=== PATIENT | female | born 1965 | race Caucasian/White ===

== ENCOUNTER 2016-12-08 19:20 | Inpatient (IN) | payer OTHER, BC ==
[~2016-12-08] VITALS: Ht 172.7 cm; Wt 97.4 kg
[~2016-12-08 19:20] MED LIST: ALPR1TAB2 PO; AMLO5TAB2 PO; BUPR150T6 PO; CEPH-368 PO; CHOL2000 PO; DIAZ5TAB PO; GABA-826 PO; HYDR25TA6 PO; LAMO150T PO; METH750T87 PO; OMEP-110 PO; OXYC10TA6 PO; OXYC5TAB2 PO; PARO30TA45 PO; TRAZ100T15 PO; VITA400C42 PO
[2016-12-08] MEDS ORDERED: ONDANSETRON 2MG/ML, 2ML IVPush ONE (19:30)
[2016-12-08] MEDS ORDERED: SODIUM CHLORIDE 0.9% 1,000ML IVBOLUS ONE (19:30)
[2016-12-08] MEDS ORDERED: ONDANSETRON 2MG/ML, 2ML ONE (19:32)
[2016-12-08 19:54] LABS: ASPARTATE AMINO TRANSFERASE 25 U/L (15-37); BLOOD UREA NITROGEN 16 mg/dL (7-18)
[2016-12-08 20:20] LABS: PATH.CAST-FLAG NOT PRESENT; SPERM-FLAG NOT PRESENT; SRC-FLAG NOT PRESENT; XTAL-FLAG NOT PRESENT; YLC-FLAG NOT PRESENT
[2016-12-08] MEDS ORDERED: MORPHINE SULFATE 4 MG/ML, 1ML ONE ×3 (20:22→22:28)
[2016-12-08] MEDS ORDERED: TRINTELLIX PO (20:30)
[2016-12-08] MEDS ORDERED: MORPHINE SULFATE 4 MG/ML, 1ML IVPush ONE ×2 (20:30→22:00)
[2016-12-08] MEDS ORDERED: ALPR1TAB2 PO (20:31)
[2016-12-08] MEDS ORDERED: MECL12.52 PO (20:31)
[2016-12-08] MEDS ORDERED: TRAZ100T15 PO (20:31)
[2016-12-08] MEDS ORDERED: OMNIPAQUE 350 MG/ML, 100ML BOTTLE ONE (21:32)
[2016-12-08] MEDS ORDERED: FAMOTIDINE 20 MG/2 ML ONE (21:40)
[2016-12-08] MEDS ORDERED: METOCLOPRAMIDE 5 MG/ML, 2ML ONE (21:40)
[2016-12-08] MEDS ORDERED: METOCLOPRAMIDE 5 MG/ML, 2ML IVPush ONE (22:00)
[2016-12-08] MEDS ORDERED: FAMOTIDINE 20 MG/2 ML IVPush ONE (22:00)
[2016-12-08] MEDS ORDERED: morphine SULFATE 10 MG/ML, 1ML IVPush ONE (22:00)
[2016-12-08] MEDS ORDERED: PROMETHAZINE 25 MG/ML, 1ML IM ONE (23:00)
[2016-12-08] MEDS ORDERED: HYDROmorphone 2 MG/ML, 1ML IVPush PRN ×2 (23:00)
[2016-12-08] MEDS ORDERED: BISACODYL 10 MG SUPP PR PRN (23:30)
[2016-12-08] MEDS ORDERED: MECLIZINE 12.5 MG TABLET PO PRN (23:30)
[2016-12-08] MEDS ORDERED: ENALAPRILAT 1.25 MG/ML, 2ML IVPush PRN (23:30)
[2016-12-08] MEDS ORDERED: OXYcodone IR 5MG TABLET PO PRN (23:30)
[2016-12-08] MEDS ORDERED: TRAZODONE 100MG TABLET PO SCH (23:30)
[2016-12-08] MEDS ORDERED: POLYETHYLENE GLYCOL 17 GM PACKET PO PRN (23:30)
[2016-12-08] MEDS ORDERED: hydrALAzine 20 MG/ML, 1ML IVPush PRN (23:30)
[2016-12-09] MEDS: SODIUM CHLORIDE 0.9% 1,000 ML IV SCH ×3 (01:08→14:54)
[2016-12-09 02:40] VITALS: BP 129/76
[2016-12-09] MEDS: HEPARIN 5,000 UNITS/ML, 1ML SQ SCH ×3 (05:54→21:35)
[2016-12-09 06:22] LABS: ASPARTATE AMINO TRANSFERASE 225 U/L (15-37); BLOOD UREA NITROGEN 13 mg/dL (7-18)
[2016-12-09] MEDS ORDERED: SUMATRIPTAN 25 MG TABLET PO ONE (08:00)
[2016-12-09 08:15] VITALS: BP 109/67
[2016-12-09] MEDS: LAMOTRIGINE 100 MG TABLET PO SCH (09:00)
[2016-12-09] MEDS: AMLODIPINE 5 MG TABLET PO SCH (09:00)
[2016-12-09] MEDS ORDERED: OMEPRAZOLE 20 MG CAPSULE.DR PO SCH (09:00)
[2016-12-09] MEDS: CHOLECALCIFEROL 1,000 UNIT TABLET PO SCH (09:00)
[2016-12-09] MEDS: SENNA/DOCUSATE TABLET PO SCH (09:09)
[2016-12-09] MEDS: ONDANSETRON 2MG/ML, 2ML IVPush PRN (09:59)
[2016-12-09] MEDS: morphine SULFATE 10 MG/ML, 1ML IVPush PRN (13:58)
[2016-12-09 14:30] VITALS: BP 125/78
[2016-12-09] MEDS: LORazepam 2 MG/ML, 1ML IVPush PRN (17:00)
[2016-12-09] MEDS: D5%-0.9% NACL 1,000 ML IV SCH (17:00)
[2016-12-09 19:43] VITALS: BP 121/74
[2016-12-09] MEDS ORDERED: TRAZODONE 100MG TABLET PO SCH (21:00)
[2016-12-09] MEDS ORDERED: TRAZODONE 100MG TABLET PO ONE (23:00)
[2016-12-10] MEDS: D5%-0.9% NACL 1,000 ML IV SCH ×2 (02:00→15:00)
[2016-12-10 03:24] VITALS: BP 120/75
[2016-12-10] MEDS: HEPARIN 5,000 UNITS/ML, 1ML SQ SCH ×2 (05:27→13:00)
[2016-12-10 05:41] LABS: BLOOD UREA NITROGEN 11 mg/dL (7-18)
[2016-12-10 05:45] LABS: ASPARTATE AMINO TRANSFERASE 61 U/L (15-37)
[2016-12-10 08:05] VITALS: BP 154/95
[2016-12-10] MEDS: morphine SULFATE 10 MG/ML, 1ML IVPush PRN ×3 (08:06→15:58)
[2016-12-10] MEDS: AMLODIPINE 5 MG TABLET PO SCH (08:08)
[2016-12-10] MEDS: CHOLECALCIFEROL 1,000 UNIT TABLET PO SCH (08:08)
[2016-12-10] MEDS: LAMOTRIGINE 100 MG TABLET PO SCH (08:08)
[2016-12-10] MEDS: SENNA/DOCUSATE TABLET PO SCH (08:08)
[2016-12-10] MEDS: ONDANSETRON 2MG/ML, 2ML IVPush PRN (08:17)
[2016-12-10 13:10] VITALS: BP 110/70
[2016-12-10] MEDS ORDERED: PHENYLEPHRINE 10 MG/ML ONE (14:30)
[2016-12-10] MEDS ORDERED: PROMETHAZINE 25 MG/ML, 1ML IV PRN (14:30)
[2016-12-10] MEDS ORDERED: METOCLOPRAMIDE 5 MG/ML, 2ML IV PRN (14:30)
[2016-12-10] MEDS ORDERED: ROCURONIUM 10 MG/ML ONE (14:30)
[2016-12-10] MEDS ORDERED: ONDANSETRON 2MG/ML, 2ML IVPush PRN (14:30)
[2016-12-10] MEDS ORDERED: EPHEDRINE 50 MG/ML, 1ML ONE (14:30)
[2016-12-10] MEDS ORDERED: SUCCINYLCHOLINE 20 MG/ML, 10ML ONE (14:30)
[2016-12-10] MEDS ORDERED: PROPOFOL 10 MG/ML, 20ML ONE (14:30)
[2016-12-10] MEDS ORDERED: INDOMETHACIN 50 MG SUPP.RECT ONE (15:50)
[2016-12-10] MEDS ORDERED: ONDANSETRON 2MG/ML, 2ML ONE (15:55)
[2016-12-10] MEDS ORDERED: morphine SULFATE 10 MG/ML, 1ML ONE (15:55)
[2016-12-10] MEDS ORDERED: INDOMETHACIN 50 MG SUPP.RECT PR ONE (16:00)
[2016-12-10] MEDS ORDERED: [UNRECOGNIZED DRUG - REMARK] MC PRN (17:30)
[2016-12-10 19:50] VITALS: BP 158/84
[2016-12-10] MEDS: LACTATED RINGERS 1,000 ML IV SCH ×2 (20:00→23:20)
[2016-12-10] MEDS: TRAZODONE 100MG TABLET PO SCH (21:16)
[2016-12-11 01:05] VITALS: BP 103/66
[2016-12-11] MEDS: morphine SULFATE 10 MG/ML, 1ML IVPush PRN ×3 (03:13→13:50)
[2016-12-11 04:40] VITALS: BP 115/72
[2016-12-11 06:06] LABS: BLOOD UREA NITROGEN 7 mg/dL (7-18)
[2016-12-11 06:10] LABS: ASPARTATE AMINO TRANSFERASE 175 U/L (15-37)
[2016-12-11 07:30] VITALS: BP 107/69
[2016-12-11] MEDS: AMLODIPINE 5 MG TABLET PO SCH (08:17)
[2016-12-11] MEDS: ONDANSETRON 2MG/ML, 2ML IVPush PRN ×2 (08:27→13:51)
[2016-12-11] MEDS: LAMOTRIGINE 100 MG TABLET PO SCH (08:29)
[2016-12-11] MEDS: CHOLECALCIFEROL 1,000 UNIT TABLET PO SCH (08:31)
[2016-12-11] MEDS: SENNA/DOCUSATE TABLET PO SCH (08:31)
[2016-12-11] MEDS ORDERED: LAMOTRIGINE 100 MG TABLET PO SCH (09:00)
[2016-12-11] MEDS ORDERED: LAMOTRIGINE 25 MG TABLET PO ONE ×2 (09:00→09:30)
[2016-12-11] MEDS: TRINTELLIX 10 MG PO SCH (10:07)
[2016-12-11] MEDS: OMEPRAZOLE 20 MG CAPSULE.DR PO SCH (11:19)
[2016-12-11 14:09] VITALS: BP 129/82
[2016-12-11 19:14] VITALS: BP 125/80
[2016-12-11] MEDS: TRAZODONE 100MG TABLET PO SCH (21:23)
[2016-12-12 00:28] VITALS: BP 114/72
[2016-12-12 05:38] LABS: BLOOD UREA NITROGEN 10 mg/dL (7-18)
[2016-12-12 05:42] LABS: ASPARTATE AMINO TRANSFERASE 67 U/L (15-37)
[2016-12-12 09:02] VITALS: BP 108/69
[2016-12-12] MEDS: OMEPRAZOLE 20 MG CAPSULE.DR PO SCH (09:21)
[2016-12-12] MEDS: LAMOTRIGINE 100 MG TABLET PO SCH (09:21)
[2016-12-12] MEDS: SENNA/DOCUSATE TABLET PO SCH (09:21)
[2016-12-12] MEDS: AMLODIPINE 5 MG TABLET PO SCH (09:21)
[2016-12-12] MEDS: CHOLECALCIFEROL 1,000 UNIT TABLET PO SCH (09:22)
[2016-12-12] MEDS: TRINTELLIX 10 MG PO SCH (09:24)
[2016-12-12] MEDS: LORazepam 2 MG/ML, 1ML IVPush PRN (12:44)
[2016-12-12] MEDS: ONDANSETRON 2MG/ML, 2ML IVPush PRN ×2 (12:44→20:24)
[2016-12-12 13:34] VITALS: BP 111/74
[2016-12-12 18:42] VITALS: BP 121/79
[2016-12-12] MEDS: TRAZODONE 100MG TABLET PO SCH (20:24)
[2016-12-13 03:32] VITALS: BP 135/86
[2016-12-13] MEDS ORDERED: ALUMINUM/MAG/SIMETHICONE 30 ML UDC PO PRN (04:00)
[2016-12-13 06:08] LABS: ASPARTATE AMINO TRANSFERASE 41 U/L (15-37); BLOOD UREA NITROGEN 11 mg/dL (7-18)
[2016-12-13 08:07] VITALS: BP 123/74
[2016-12-13] MEDS: TRINTELLIX 10 MG PO SCH (08:38)
[2016-12-13] MEDS: LAMOTRIGINE 100 MG TABLET PO SCH (08:38)
[2016-12-13] MEDS: OMEPRAZOLE 20 MG CAPSULE.DR PO SCH (08:38)
[2016-12-13] MEDS: SENNA/DOCUSATE TABLET PO SCH (08:38)
[2016-12-13] MEDS: CHOLECALCIFEROL 1,000 UNIT TABLET PO SCH (08:38)
[2016-12-13] MEDS: AMLODIPINE 5 MG TABLET PO SCH (08:38)
[2016-12-13] MEDS: ONDANSETRON 2MG/ML, 2ML IVPush PRN (11:35)
[2016-12-13 14:07] VITALS: BP 124/77
[2016-12-13] MEDS ORDERED: OMEP-110 PO (14:31)
[2016-12-13] MEDS ORDERED: LAMO100T PO (14:31)
[2016-12-13] MEDS ORDERED: ONDA4TAB7 PO (15:35)
== END 2016-12-13 16:00 | disposition home or self-care (01) | DRG 391 ==
LOC: ED 22:22 → EDIP 22:53 → 4NOR 23:49 → DCLOUNGE 12-13 15:46
PROVIDERS: ADMIT Internal Medicine; ATTEND Internal Medicine
PROC: 0DB68ZX Excision of Stomach, Via Natural or Artificial Opening Endoscopic, Diagnostic (ICD-10-PCS; 2016-12-10)
PROC: 0DB58ZX Excision of Esophagus, Via Natural or Artificial Opening Endoscopic, Diagnostic (ICD-10-PCS; 2016-12-10)
PROC: 0F798DZ Dilation of Common Bile Duct with Intraluminal Device, Via Natural or Artificial Opening Endoscopic (ICD-10-PCS; 2016-12-10)
PROC: 0DB98ZX Excision of Duodenum, Via Natural or Artificial Opening Endoscopic, Diagnostic (ICD-10-PCS; principal; 2016-12-10 14:30)
DX: K57.30 Diverticulosis of large intestine without perforation or abscess without bleeding (principal); K83.1 Obstruction of bile duct; K21.0 Gastro-esophageal reflux disease with esophagitis; I10 Essential (primary) hypertension; F32.9 Major depressive disorder, single episode, unspecified; F43.10 Post-traumatic stress disorder, unspecified; F41.9 Anxiety disorder, unspecified; G47.00 Insomnia, unspecified; Z87.11 Personal history of peptic ulcer disease; Z90.49 Acquired absence of other specified parts of digestive tract; Z88.0 Allergy status to penicillin; Z88.8 Allergy status to other drugs, medicaments and biological substances; F51.04 Psychophysiologic insomnia
CPT/HCPCS: 36415; 74177; 74181; 74328; 80053; 80061; 81001; 82306; 82784; 82977; 83036; 83516; 83690; 83735; 84439; 84443; 85025; 85610; 86704; 86706; 86708; 86803; 87086; 87340; 88305; 96361; 96374; 96375; 96376; J1644; J2405; J2704; J7042; Q9967; C1769; C1894; C2625; J0330; J2060; J2270; J2370; J2765; J7030; S0028

== ENCOUNTER → 2016-12-21 | Outpatient (CLI) | payer OTHER, BC ==
[~2016-12-21] MED LIST changes: +LAMO100T PO; +MECL12.52 PO; +ONDA4TAB7 PO; +TRINTELLIX PO
== END | disposition home or self-care (01) ==
LOC: RAD 16:40
PROVIDERS: ATTEND Internal Medicine Gastroenterology
DX: K83.8 Other specified diseases of biliary tract (principal); Z90.49 Acquired absence of other specified parts of digestive tract
CPT/HCPCS: 74000

== ENCOUNTER → 2017-03-11 | Outpatient (CLI) | payer OTHER, BC | END | disposition home or self-care (01) | LOC: CFH 15:47 | PROVIDERS: ATTEND Physician Assistant Surgical | DX: R51 Headache (principal); R53.1 Weakness; R41.3 Other amnesia | CPT/HCPCS: 70551 ==

== ENCOUNTER → 2017-03-16 | Outpatient (CLI) | payer OTHER, BC | END | disposition home or self-care (01) | LOC: CFH 12:01 | PROVIDERS: ATTEND Genetic Counselor, MS | DX: Z12.31 Encounter for screening mammogram for malignant neoplasm of breast (principal) | CPT/HCPCS: 77063; G0202 ==

== ENCOUNTER → 2017-07-29 | Outpatient (CLI) | payer OTHER, BC ==
[~2017-07-29] MED LIST changes: -LAMO150T PO; +LAMO150T2 PO; +OMNIPAQUE 350 MG/ML, 100ML BOTTLE ONE
== END | disposition home or self-care (01) ==
LOC: CFH 10:50
PROVIDERS: ATTEND Internal Medicine Gastroenterology
DX: R10.32 Left lower quadrant pain (principal); K57.92 Diverticulitis of intestine, part unspecified, without perforation or abscess without bleeding; R11.2 Nausea with vomiting, unspecified; K21.9 Gastro-esophageal reflux disease without esophagitis
CPT/HCPCS: 74177; 82565; Q9967

== ENCOUNTER → 2017-08-18 | Outpatient (CLI) | payer OTHER, BC ==
[~2017-08-18] MED LIST changes: -OMNIPAQUE 350 MG/ML, 100ML BOTTLE ONE
== END ==
LOC: PETCFH 08:08
PROVIDERS: ATTEND Internal Medicine Gastroenterology
DX: Z02.9 Encounter for administrative examinations, unspecified (principal)

== ENCOUNTER 2018-08-19 14:13 | Emergency (ER) | payer OTHER ==
[~2018-08-19] VITALS: Ht 172.7 cm; Wt 91.1 kg
[~2018-08-19 14:13] MED LIST changes: +AMLO-150 PO; -AMLO5TAB2 PO; +TRAZ-137 PO; -TRAZ100T15 PO
[2018-08-19] MEDS ORDERED: SODIUM CHLORIDE FLUSH 10ML SYR IVF ONE (15:00)
[2018-08-19] MEDS ORDERED: MORPHINE SULFATE 4 MG/ML, 1ML IVPush PRN (15:00)
[2018-08-19] MEDS ORDERED: ONDANSETRON 2MG/ML, 2ML IVPush ONE (15:00)
[2018-08-19 15:11] LABS: BASOPHILS # (AUTO) 0.04 x10^3/uL (0-0.1); BASOPHILS % (AUTO) 1 % (0-1); EOSINOPHILS # (AUTO) 0.15 x10^3/uL (0-0.4); EOSINOPHILS % (AUTO) 3 % (1-7); LYMPHOCYTES % (AUTO) 28 % (22-44); MD NO; MEAN CORPUSCULAR HEMOGLOBIN 30.2 pg (27.0-34.8); MEAN CORPUSCULAR HGB CONC 33.4 g/dL (32.4-35.8); MEAN CORPUSCULAR VOLUME 90.5 fL (80-100); MEAN PLATELET VOLUME 8.3 fL (7.4-10.4); MONOCYTES # (AUTO) 0.45 x10^3/uL (0.2-0.8); MONOCYTES % (AUTO) 9 % (2-9); NEUTROPHILS % (AUTO) 60 % (42-75); PLATELET COUNT 354 x10^3/uL (130-400); RED BLOOD COUNT 4.42 x10^6/uL (3.82-5.3); RED CELL DISTRIBUTION WIDTH 12.7 % (9.6-15.2)
[2018-08-19 15:19] LABS: ALANINE AMINOTRANSFERASE 24 U/L (12-78); ALBUMIN 3.8 g/dL (3.4-5.0); ANION GAP 7 mmol/L (5-15); CALCIUM 8.8 mg/dL (8.5-10.1); CHLORIDE 104 mmol/L (98-107); CREATININE 0.89 mg/dL (0.55-1.02)
[2018-08-19] MEDS ORDERED: MORPHINE SULFATE 4 MG/ML, 1ML ONE (15:21)
[2018-08-19] MEDS ORDERED: ONDANSETRON 2MG/ML, 2ML ONE (15:21)
[2018-08-19 15:22] LABS: ALKALINE PHOSPHATASE 114 U/L (45-117); BILIRUBIN,TOTAL 0.3 mg/dL (0.2-1.0); TOTAL PROTEIN 7.7 g/dL (6.4-8.2)
[2018-08-19] MEDS ORDERED: OMNIPAQUE 350 MG/ML, 100ML BOTTLE ONE (15:46)
--- NOTE | 2018-08-19 15:49 | NUR ---
RETRUNED FROM CT
[2018-08-19 17:14] VITALS: BP 139/80
== END 2018-08-19 17:16 | disposition home or self-care (01) ==
LOC: ED 15:57
DX: R10.32 Left lower quadrant pain (principal); I10 Essential (primary) hypertension; R11.0 Nausea
CPT/HCPCS: 36415; 74177; 80053; 85025; 96374; 96375; 99284; J2405; Q9967